=== PATIENT | male | born 1935 | race Caucasian/White ===

== ENCOUNTER → 2016-06-25 | Outpatient (CLI) | payer OTHER, BC ==
[~2016-06-25] MED LIST: ASPI81TA28 PO; ATOR-24 PO; DIAZ-165 PO; METO50TA16 PO; MULT-513 PO; PRLSR20 PO
== END | disposition home or self-care (01) ==
LOC: C.LAB 13:30
PROVIDERS: ATTEND Urology
DX: C67.9 Malignant neoplasm of bladder, unspecified (principal); N39.0 Urinary tract infection, site not specified

== ENCOUNTER → 2017-07-02 | Outpatient (CLI) | payer OTHER, BC | END | disposition home or self-care (01) | LOC: C.LABSPEC 10:33 | PROVIDERS: ATTEND Urology | DX: N39.0 Urinary tract infection, site not specified (principal) ==

== ENCOUNTER 2017-07-04 21:19 | Emergency (ER) | payer OTHER, BC ==
[~2017-07-04] VITALS: Ht 180.3 cm; Wt 88.9 kg
[2017-07-04 21:27] VITALS: BP 211/96; PULSE 98; TEMP 36.6; O2SAT 96; Ht 180.3 cm; Wt 88.9 kg
[2017-07-04] MEDS ORDERED: COEN150C PO (21:50)
--- NOTE | 2017-07-04 22:20 | EMERGENCY ROOM VISIT NOTE ---
ED Visit Note First contact with patient: 21:30 The patient was seen and examined with Rachna Valentino PA-C. I agree with the history, physical and findings. Please see the note for disposition and details.
[2017-07-04] MEDS ORDERED: CEPH500C PO (22:29)
[2017-07-04] MEDS ORDERED: CEPHALEXIN MONOHYDRATE 250 MG CAP PO ONE (22:30)
--- NOTE | 2017-07-04 22:31 | EMERGENCY ROOM VISIT NOTE ---
History First contact with patient: 21:30 Chief Complaint: ALLERGIC REACTION Stated Complaint: RASH,SWELLING,CIPRO REACTION Nursing Triage Summary: pt has been on cipro this week, pt noticed a rash to arms and chest tonight History of Present Illness The patient is a 81 year old male who presents to the Emergency Room with complaints of a possible allergic reaction. The patient reports that he had a cystoscopy done 3 days ago for surveillance of bladder cancer. He states that normally, when he was discharged he was given 1 dose of ciprofloxacin, but he was not given this. The next day, the patient developed chills and had a urine test which showed a urinary tract infection. He was prescribed Cipro and has taken 5 doses of this. He reports that this evening, he noticed a rash to his arms, chest and abdomen. The rash is red but not itchy. He denies any pain. He denies any facial swelling, difficulty breathing or difficulty swallowing. Review of Systems A complete 10 point review of systems was reviewed with the patient with pertinent positives and negatives as per history of present illness. All else were negative. Past Medical/Surgical History Medical Problems: (1) Coronary artery disease (2) History of bladder cancer Surgical Problems: (1) History of heart bypass surgery Social History Smoking Status: Never Smoker Alcohol Use: none Marital Status: Housing Status: lives with significant other Current/Historical Medications Scheduled Aspirin (Aspirin Ec), 81 MG PO DAILY Atorvastatin (Lipitor), 40 MG PO DAILY Cephalexin Monohydrate (Keflex), 500 MG PO BID Coenzyme Q10 (Ubidecarenone) (Co Q-10), 1 CAP PO DAILY Metoprolol Tartrate (Lopressor) (Lopressor), 50 MG PO BID Multivitamins/Minerals (Mvi With Minerals), 1 TAB PO DAILY Omeprazole (Prilosec), 20 MG PO DAILY Physical Exam Vital Signs Date Time Temp Pulse Resp B/P (MAP) Pulse Ox O2 Delivery O2 Flow Rate FiO2 07/04/17 21:27 36.6 98 18 211/96 96 Room Air Physical Exam VITALS: Vitals are noted on the nurse's note and reviewed by myself. Vital signs stable. GENERAL: This is an 81-year-old male, in no acute distress, nondiaphoretic, well -developed well-nourished. SKIN: There is a raised, erythematous rash to bilateral inner forearms as well as to the lower abdomen and chest. The lesions are blanchable. EARS: External auditory canals clear, tympanic membranes pearly dominguez without erythema or effusion bilaterally. EYES: Pupils equal round and reactive to light and accommodation. MOUTH: Mucous membranes moist. NECK: Supple without nuchal rigidity. No lymphadenopathy. HEART: Regular rate and rhythm without murmurs gallops or rubs. LUNGS: Clear to auscultation bilaterally without wheezes, rales or rhonchi. NEURO: Patient was alert and oriented to person place and time. Medical Decision & Procedures Medications Administered Medications (Trade) Dose Ordered Sig/Frank Route Start Time Stop Time Status Last Admin Dose Admin Cephalexin Monohydrate (Keflex Cap) 500 mg NOW ONCE PO 07/04/17 22:30 07/04/17 22:31 DC 07/04/17 22:31 500 MG Medical Decision Differential diagnosis includes allergic reaction, contact dermatitis, cellulitis, among others. The patient was evaluated as above. He presents with rash and possible allergic reaction. Patient's outside records were reviewed including urine culture which was done 2 days ago. This showed sensitivity to ciprofloxacin as well as cephalosporins. Patient will be switched to Keflex and was advised to take Benadryl as needed for symptoms. He was advised to follow up with his PCP and urologist for recheck. He verbalized understanding of my assessment and treatment plan and was discharged home in good condition. The patient was independently evaluated by Dr. Armando, ED attending physician, who agreed with my assessment and treatment plan. Medication Reconcilliation Current Medication List: was personally reviewed by me Blood Pressure Screening Patient's blood pressure: Elevated blood pressure (Patient states he has white coat syndrome and his BP is always elevated when he is in the hospital. He checked his BP at home and it was 120/70.) Impression Primary Impression: Rash and nonspecific skin eruption Departure Information Dispostion Home / Self-Care Condition GOOD Prescriptions Cephalexin Monohydrate (Keflex) 500 Mg Cap 500 MG PO BID for 5 Days, #10 CAP Prov: Rachna Valentino ., ODILON 07/04/17 Referrals Henry Driscoll D.O. (PCP) Patient Instructions My [facility] Additional Instructions Stop the ciprofloxacin, as this may be causing the rash you are experiencing. You were prescribed Keflex to be taken twice daily for total of 5 days. This is an antibiotic. All antibiotics have the potential to cause diarrhea. Stop this medication and contact a medical provider if you were to develop any significant adverse side effects including: wheezing, shortness of breath, passing out, vomiting, or a diffuse rash. Always take antibiotics as directed and COMPLETE the ENTIRE course regardless of the improvement of your symptoms. You may take Benadryl (diphenhydramine) 25 mgs every 6 hours as needed for symptoms. As with any visit to the emergency department, you should follow up with your primary care provider. Return to the emergency department with significantly worsening rash, difficulty breathing, difficulty swallowing, significant facial swelling or any other new/concerning symptoms.
== END 2017-07-04 22:42 | disposition home or self-care (01) ==
LOC: C.EDB 21:22 → C.EDC 22:42
DX: R21 Rash and other nonspecific skin eruption (principal); Z85.51 Personal history of malignant neoplasm of bladder; I25.10 Atherosclerotic heart disease of native coronary artery without angina pectoris; Z79.82 Long term (current) use of aspirin